=== PATIENT | male | born 1985 | race African-American/Black ===

== ENCOUNTER 2021-09-24 15:49 | Emergency (ER) | payer BC, SELFPAY ==
[2021-09-24 16:00] VITALS: BP 142/84; PULSE 116; RESP 20; TEMP 37.3; O2SAT 99
--- NOTE | 2021-09-24 16:00 | ED.WOUNDLAC ---
HPI - Wound/Laceration General Chief Complaint: Wound/Laceration Stated Complaint: stitches on forehead, foot injury Time Seen by Provider: 09/24/21 16:00 Source: patient Mode of arrival: ambulatory Limitations: no limitations History of Present Illness HPI narrative: 35 yo M presents with laceartion to L side forehead and R foot. States he dropped glass bowl that broke. He then accidentally stepped on a peice of the glass that caused him to fall and hit forehead on coffee table. Denies LOC. no vision changes. Denies headache, N/V. INjury happened approx. 1 hr prior to arrival. Arrived with wound to forehead actively bleeding. Ambulatory with steady gait. All systems reviewed and negative except as noted above. Related Data Allergies Allergy/AdvReac Type Severity Reaction Status Date / Time No Known Allergies Allergy Verified 09/24/21 15:56 Review of Systems Review of Systems: CONSTITUTIONAL: Denies fever, chills, or sweats. EYES: Denies visual changes, redness, or discharge. ENT: Denies rhinorrhea, congestion, sore throat, or otalgia. CARDIOVASCULAR: Denies chest pain, palpitations, or edema. RESPIRATORY: Denies cough or dyspnea. GASTROINTESTINAL: Denies abdominal pain, nausea, vomiting, or diarrhea. GENITOURINARY: Denies dysuria or hematuria. SKIN: Denies rash or itching. Reports laceration to right face and left forehead. MUSCULOSKELETAL: Denies back pain, joint pain, or myalgia. NEUROLOGIC: Denies headache, numbness, or weakness. PSYCHIATRIC: Denies anxiety or depression. All other systems reviewed are negative, except as documented in HPI. PMFSH Comments At time of signature, agree with nursing past medical, surgical, social and family history. There is no relevant family history pertinent to the presenting complaint. Exam Narrative: GENERAL: This is a well-nourished, well-developed patient, in no apparent distress. HEAD: normocephalic, atraumatic. EYES: PERRL. Sclera clear/white. Vision is grossly intact. EARS: External ears normal NOSE: External nose normal NECK: Neck supple, non-tender without lymphadenopathy, masses or thyromegaly. CARDIOVASCULAR: Regular rate and rhythm without murmurs, gallops, or rubs. RESPIRATORY: Clear to auscultation. Breath sounds equal bilaterally. No wheezes, rales, or rhonchi. SKIN: warm, Dry, intact with no suspicious lesions or rash, good texture and turgor. Laceration to L forehead, 2.5cm, deep. Laceration to plantar aspect R foot, 2cm. irregular. NEURO: awake, alert, and oriented to person, place and time. There were no obvious focal neurologic abnormalities. EXTREMITIES: No joint tenderness, effusion, or edema noted. HENMT: Head images: 1. 2.5cm laceration, deep Extrem: Ankle/foot/toe images: 1. 2cm irregular laceration Course Course Level of Care: Express Care Visit Vital Signs Vital signs: Vital Signs Temperature 37.3 C 09/24/21 16:00 Pulse Rate 116 H 09/24/21 16:00 Respiratory Rate 20 09/24/21 16:00 Blood Pressure 142/84 H 09/24/21 16:00 Pulse Oximetry 99 09/24/21 16:00 Temperature 37.3 C 09/24/21 16:00 Pulse Rate 116 H 09/24/21 16:00 Respiratory Rate 20 09/24/21 16:00 Blood Pressure 142/84 H 09/24/21 16:00 Pulse Oximetry 99 09/24/21 16:00 reviewed Procedures Laceration Laceration 1: Date: 09/24/21 Time: 16:52 Site: lower extremity (foot) Side (If applicable): right Size (cm): 2 Description: irregular Depth: simple, single layer Local Anesthetic: lidocaine 1% Amount of anesthesia used (mL): 4 Pre-repair: wound explored and irrigated ====== Skin Level ====== Skin layer closed with: nylon Size (cm): 4-0 Number of sutures: 4 Technique: simple, interrupted ====== Subcutaneous Layer ====== ====== Muscle Layer ====== ====== Tendon Layer ====== Laceration 2: Date: 09/24/21 Time: 16:
== END 2021-09-24 17:01 | disposition home or self-care (01) ==
PROVIDERS: Emergency Provider Nurse Practitioner Family
DX: S01.81XA Laceration without foreign body of other part of head, initial encounter (principal); S91.311A Laceration without foreign body, right foot, initial encounter; W18.02XA Striking against glass with subsequent fall, initial encounter
CPT/HCPCS: 12011; 12001; 99213; G0463